=== PATIENT | female | born 1965 | race Caucasian/White ===

== ENCOUNTER 2022-01-20 07:29 | Day surgery (SDC) | payer BC ==
[2022-01-20] MEDS ORDERED: Propofol 200 MG/20 ML SDV IV ONE (07:30)
[2022-01-20] MEDS ORDERED: Lactated Ringers 1,000 ML IV SCH (07:30)
[2022-01-20] MEDS ORDERED: Sodium Chloride 0.9% 10 ML Syringe FLUSH PRN (07:30)
== END 2022-01-20 10:18 | disposition home or self-care (01) ==
LOC: FB.SDS 07:29
PROVIDERS: ATTEND Surgery
DX: Z12.11 Encounter for screening for malignant neoplasm of colon (principal); Z90.49 Acquired absence of other specified parts of digestive tract; Z98.890 Other specified postprocedural states
CPT/HCPCS: 00812-QZ; J2704; J7120